=== PATIENT | female | born 1960 | race Caucasian/White ===

== ENCOUNTER 2017-05-12 16:36 | Emergency (ER) | payer BC ==
[2017-05-12 17:03] VITALS: BP 150/81; PULSE 79; TEMP 98.3; BMI 27.1
--- NOTE | 2017-05-12 17:57 | PDOC ---
History of Present Illness - History of Present Illness Initial Comments: 05/12/17 17:56 The patient is a year old female, with a significant past medical history of, who presents to the emergency department with The patient denies chest pain, shortness of breath, headache and dizziness. Denies fever, chills, nausea, vomit, diarrhea and constipation. Denies dysuria, frequency, urgency and hematuria. Allergies: Past surgical history: Social history: PMD - <Sohail Marshall - Last Filed: 05/12/17 17:56> - General History Source: Patient Exam Limitations: No Limitations - History of Present Illness Initial Comments: 05/12/17 18:53 This is a 56-year-old woman without significant past medical history who presents today with a left eye pain upon waking up this morning. Patient reports foreign body sensation which she describes as a very bad pain which worsens when she blinks. Pain is isolated to the left eye only. Patient denies any changes in vision, fevers, headaches, pain behind the eye. She denies trauma. <Lionel Power - Last Filed: 05/12/17 19:05> - General Chief Complaint: Foreign Body (FB) Stated Complaint: EYE INJURY Time Seen by Provider: 05/12/17 17:56 Past History - Past Medical History Anemia: No Asthma: No Cancer: No Cardiac Disorders: No CVA: No COPD: No CHF: No Dementia: No Diabetes: No GI Disorders: Yes (DYSPHAGIA, HEARTBURN, HEMORRHOIDS) Disorders: No HTN: Yes Hypercholesterolemia: No Liver Disease: No Seizures: No Thyroid Disease: No - Surgical History Abdominal Surgery: No Appendectomy: No Cardiac Surgery: No Cholecystectomy: No Lung Surgery: No Neurologic Surgery: No Orthopedic Surgery: No - Psycho/Social/Smoking Cessation Hx Suicidal Ideation: No Smoking History: Never smoked Have you smoked in the past 12 months: No Information on smoking cessation initiated: No Hx Alcohol Use: No Drug/Substance Use Hx: No Substance Use Type: None <Sohail Marshall - Last Filed: 05/12/17 17:56> <Lionel Power - Last Filed: 05/12/17 19:05> - Past Medical History Allergies/Adverse Reactions: Allergies Allergy/AdvReac Type Severity Reaction Status Date / Time No Known Drug Allergies Allergy Verified 05/12/17 19:04 Home Medications: Ambulatory Orders Amlodipine Besylate/Benazepril [Lotrel 5-20 mg Capsule] 1 each PO DAILY Review of Systems - Review of Systems Comments:: 05/12/17 17:56 GENERAL/CONSTITUTIONAL: No fever or chills. No weakness. HEAD, EYES, EARS, NOSE AND THROAT: No change in vision. No ear pain or discharge. No sore throat. CARDIOVASCULAR: No chest pain or shortness of breath RESPIRATORY: No cough, wheezing, or hemoptysis. GASTROINTESTINAL: No nausea, vomiting, diarrhea or constipation. GENITOURINARY: No dysuria, frequency, or change in urination. MUSCULOSKELETAL: No joint or muscle swelling or pain. No neck or back pain. SKIN: No rash NEUROLOGIC: No headache, vertigo, loss of consciousness, or change in strength/ sensation. ENDOCRINE: No increased thirst. No abnormal weight change HEMATOLOGIC/LYMPHATIC: No anemia, easy bleeding, or history of blood clots. ALLERGIC/IMMUNOLOGIC: No hives or skin allergy. <Sohail Marshall - Last Filed: 05/12/17 17:56> - Review of Systems Able to Perform ROS?: Yes Is the patient limited Slovenian proficient: No Constitutional: No: Symptoms Reported HEENTM: Yes: See HPI Respiratory: No: Symptoms reported Cardiac (ROS): No: Symptoms Reported ABD/GI: No: Symptoms Reported : No: Symptoms Reported Musculoskeletal: No: Symptoms Reported Integumentary: No: Symptoms Reported Neurological: No: Symptoms reported Endocrine: No: Symptoms Reported Hematologic/Lymphatic: No: Symptoms Reported <Lionel Power - Last Filed: 05/12/17 19:05> *Physical Exam - Vital Signs Last Vital Signs Temp Pulse Resp BP Pulse Ox 98.3 F 79 18 150/81 99 05/12/17 17:02 05/12/17 17:02 05/12/17 17:02 05/12/17 17:02 05/12/17 17:02 - Physical Exam Comments: 05/12/17 17:56 GENERAL: Awake, alert, and fully oriented, in no acute distress HEAD: No signs of trauma, normocephalic, atraumatic EYES: PERRLA, EOMI, sclera anicteric, conjunctiva clear ENT: Auricles normal inspection, hearing grossly normal, nares patent, oropharynx clear without exudates. Moist mucosa NECK: Normal ROM, supple, no lymphadenopathy, JVD, or masses LUNGS: No distress, speaks full sentences, clear to auscultation bilaterally HEART: Regular rate and rhythm, normal S1 and S2, no murmurs, rubs or gallops, peripheral pulses normal and equal bilaterally. ABDOMEN: Soft, nontender, normoactive bowel sounds. No guarding, no rebound. No masses EXTREMITIES: Normal inspection, Normal range of motion, no edema. No clubbing or cyanosis. NEUROLOGICAL: Cranial nerves II through XII grossly intact. Normal speech, normal gait, no focal sensorimotor deficits SKIN: Warm, Dry, normal turgor, no rashes or lesions noted. <Sohail Marshall - Last Filed: 05/12/17 17:56> - Vital Signs Last Vital Signs Temp Pulse Resp BP Pulse Ox 98.3 F 79 18 150/81 99 05/12/17 17:02 05/12/17 17:02 05/12/17 17:02 05/12/17 17:02 05/12/17 17:02 - Physical Exam General Appearance: Yes: Appropriately Dressed. No: Apparent Distress HEENT: positive: EOMI, YESSY Neck: positive: Trachea midline, Supple. negative: Tender Respiratory/Chest: positive: Lungs Clear, Normal Breath Sounds. negative: Respiratory Distress, Accessory Muscle Use Cardiovascular: positive: Regular Rhythm, Regular Rate, S1, S2. negative: Edema , JVD, Murmur Gastrointestinal/Abdominal: positive: Normal Bowel Sounds, Soft. negative: Tender Musculoskeletal: positive: Normal Inspection. negative: CVA Tenderness Extremity: positive: Normal Capillary Refill, Normal Inspection, Normal Range of Motion Integumentary: positive: Normal Color, Dry, Warm Neurologic: positive: copyist II-XII NML intact, Fully Oriented, Alert, Normal Mood/ Affect, Normal Response, Motor Strength 5/5 <Lionel Power - Last Filed: 05/12/17 19:05> Medical Decision Making - Medical Decision Making 05/12/17 18:53 A: This is a 56-year-old woman without significant past medical history who presents today with a left eye pain upon waking up this morning. Patient reports foreign body sensation which she describes as a very bad pain which worsens when she blinks. Pain is isolated to the left eye only. Patient denies any changes in vision, fevers, headaches, pain behind the eye. She denies trauma. Visual acuity 20/25 in bilateral eyes. No diplopia. No instrument. Extraocular movements intact. Fluorescein examination shows no reuptake. Sclera is erythematous extending into the iris. P: Diagnosis conjunctivitis likely viral but we'll treat with antibiotics either way. Erythromycin ophthalmic ointment half-inch ribbon to left eye 4 times a day for 5 days. discharge <Lionel Power - Last Filed: 05/12/17 19:05> *DC/Admit/Observation/Transfer <Sohail Marshall - Last Filed: 05/12/17 17:56> - Discharge Dispostion Admit: No <Lionel Power - Last Filed: 05/12/17 19:05> Diagnosis at time of Disposition: Conjunctivitis Qualifiers: Conjunctivitis type: unspecified Laterality: left Qualified Code(s): H10.9 - Unspecified conjunctivitis - Discharge Dispostion Disposition: HOME Condition at time of disposition: Stable - Referrals Referrals: Dory Garcia [Primary Care Provider] - - Patient Instructions Additional Instructions: Wash hands with soap and water every time you touch her face. Use erythromycin ointment 4 times a day for the next 5 days. If this persists follow up with an greensman. Return to the emergency department for any severe pain, blurry vision, headaches , fevers, or any other concerns. Thank you very much for choosing us to provide your emergent healthcare needs.
[2017-05-12] MEDS ORDERED: FLUORESCEIN NA 1 EA STRIP ONE (18:42)
[2017-05-12] MEDS ORDERED: TETRACAINE 0.5% OPHTH SOLN 2 ML BOTTLE ONE (18:42)
[2017-05-12] MEDS ORDERED: ERYTHROMYCIN 0.5% OPHTHALMIC OINTMENT 3.5 GM TUBE OS ONE (19:01)
[2017-05-12] MEDS ORDERED: ERYTHROMYCIN 0.5% OPHTHALMIC OINTMENT 3.5 GM TUBE ONE (19:04)
== END 2017-05-12 19:08 | disposition home or self-care (01) ==
LOC: JERFT 16:36
DX: S05.92XA Unspecified injury of left eye and orbit, initial encounter (principal); X58.XXXA Exposure to other specified factors, initial encounter; Y93.9 Activity, unspecified; Y92.9 Unspecified place or not applicable; K21.9 Gastro-esophageal reflux disease without esophagitis
CPT/HCPCS: 99281-25

== ENCOUNTER 2024-01-03 15:25 | Inpatient (IN) | payer BC ==
[2024-01-03] MEDS ORDERED: ACETAMINOPHEN INJECTION 100 ML IVPB ONE (17:42)
[2024-01-03] MEDS ORDERED: PIPERACILLIN/TAZOB 3.375 GM 3.375 GM/50 ML BAG IVPB ONE (17:45)
[2024-01-03] MEDS: PIPERACILLIN/TAZOB 3.375 GM 3.375 GM in DEXTROSE 5%-WATER - 50 ML IVPB ONE (18:05)
[2024-01-03] MEDS: ACETAMINOPHEN 1000 MG/100 ML BAG IVPB ONE (18:05)
[2024-01-03 18:06] LABS: BASO % 0.8 % (0-2.0); EOS % 0.4 % (0-4.5); HEMATOCRIT 37.7 % (32.4-45.2); HEMOGLOBIN 12.8 GM/dL (10.7-15.3); MCH 29.9 pg (25.7-33.7); MEAN CELL VOLUME 87.7 fl (80-96); MEAN PLT VOLUME 8.2 fl (7.5-11.1); MONO % 5.8 % (3.8-10.2); PLATELET COUNT 338 10^3/uL (134-434); RDW 13.6 % (11.6-15.6); WHITE BLOOD COUNT 12.7 K/mm3 (4.0-10.0)
[2024-01-03] MEDS: SODIUM CHLORIDE 1,000 ML IV SCH (18:06)
[2024-01-03] MEDS: LACTATED RINGERS SOLUTION 1,000 ML IV SCH (18:08)
[2024-01-03] MEDS: PIPERACILLIN/TAZOB 3.375 GM 3.375 GM in DEXTROSE 5%-WATER - 50 ML IVPB SCH ×2 (18:09→22:36)
[2024-01-03 18:13] LABS: INR 0.97 (0.83-1.09)
[2024-01-03 18:15] LABS: ACTIVATED PTT 27.7 SECONDS (25.2-36.5)
[2024-01-03 18:24] LABS: POTASSIUM 3.3 mmol/L (3.5-5.1)
[2024-01-03 18:26] LABS: BLOOD UREA NITROGEN 11.7 mg/dL (7-18); CALCIUM 9.6 mg/dL (8.5-10.1)
[2024-01-03 18:27] LABS: ALBUMIN 3.8 g/dl (3.4-5.0); MAGNESIUM 1.9 mg/dL (1.8-2.4)
[2024-01-03 18:30] LABS: CREATININE 0.7 mg/dL (0.55-1.3)
[2024-01-03 18:31] LABS: BILIRUBIN,TOTAL 1.4 mg/dL (0.2-1); TOT PROT 7.6 g/dl (6.4-8.2)
[2024-01-03] MEDS ORDERED: KCL 10 MEQ IVPB 10 MEQ/100 ML INFUS.BAG IVPB ONE (18:58)
[2024-01-03] MEDS: KCL 10 MEQ IVPB 10 MEQ/100 ML INFUS.BAG IVPB SCH (19:10)
[2024-01-03 19:44] LABS: BILIRUBIN,DIRECT 0.2 mg/dL (0.0-0.2)
[2024-01-03] MEDS ORDERED: ACETAMINOPHEN 325 MG TABLET (FP) ONE (19:48)
[2024-01-04 03:10] VITALS: BMI 23.9
[2024-01-04] MEDS: ACETAMINOPHEN 325 MG TABLET (FP) PO PRN (07:46)
[2024-01-04 08:30] LABS: BASO % 0.4 % (0-2.0); EOS % 0.5 % (0-4.5); HEMATOCRIT 31.9 % (32.4-45.2); HEMOGLOBIN 11.4 GM/dL (10.7-15.3); LYMPH % 10.5 % (8-40); MCH 30.9 pg (25.7-33.7); MCHC 35.9 g/dl (32.0-36.0); MEAN CELL VOLUME 86.2 fl (80-96); MEAN PLT VOLUME 7.9 fl (7.5-11.1); MONO % 6.8 % (3.8-10.2); NEUT % 81.8 % (42.8-82.8); PLATELET COUNT 288 10^3/uL (134-434); RDW 13.3 % (11.6-15.6); WHITE BLOOD COUNT 10.7 K/mm3 (4.0-10.0)
[2024-01-04 08:32] LABS: POTASSIUM 3.4 mmol/L (3.5-5.1)
[2024-01-04 08:40] LABS: ALBUMIN 3.3 g/dl (3.4-5.0); BLOOD UREA NITROGEN 7.7 mg/dL (7-18); PHOSPHOROUS 2.9 mg/dL (2.5-4.9)
[2024-01-04 08:42] LABS: BILIRUBIN,TOTAL 2.7 mg/dL (0.2-1); CALCIUM 8.8 mg/dL (8.5-10.1); TOT PROT 6.7 g/dl (6.4-8.2)
[2024-01-04 08:43] LABS: CREATININE 0.7 mg/dL (0.55-1.3); MAGNESIUM 1.8 mg/dL (1.8-2.4)
[2024-01-04] MEDS: ACETAMINOPHEN 1000 MG/100 ML BAG IVPB PRN (13:47)
[2024-01-04] MEDS: CEFTRIAXONE 1 GM in DEXTROSE 5%-WATER - 50 ML IVPB ONE (14:06)
[2024-01-04] MEDS: SODIUM CHLORIDE 0.9%/KCL 20 MEQ/1,000 ML INFUS.BAG IV SCH ×2 (16:04→22:42)
[2024-01-04] MEDS: HYDROmorphone HCl 2 MG/ML VIAL IVPB PRN (16:18)
[2024-01-04 18:26] LABS: BASO % 0.2 % (0-2.0); EOS % 0.2 % (0-4.5); HEMATOCRIT 31.3 % (32.4-45.2); HEMOGLOBIN 10.7 GM/dL (10.7-15.3); LYMPH % 6.2 % (8-40); MCHC 34.3 g/dl (32.0-36.0); MEAN CELL VOLUME 87.4 fl (80-96); MEAN PLT VOLUME 7.5 fl (7.5-11.1); MONO % 8.4 % (3.8-10.2); PLATELET COUNT 270 10^3/uL (134-434); RBC 3.58 M/mm3 (3.60-5.2); RDW 13.3 % (11.6-15.6); WHITE BLOOD COUNT 13.5 K/mm3 (4.0-10.0)
[2024-01-04 19:54] LABS: POTASSIUM 3.5 mmol/L (3.5-5.1)
[2024-01-04 19:58] LABS: ALBUMIN 3.2 g/dl (3.4-5.0); BLOOD UREA NITROGEN 8.8 mg/dL (7-18)
[2024-01-04 20:01] LABS: CREATININE 0.6 mg/dL (0.55-1.3)
[2024-01-04 20:02] LABS: TOT PROT 6.6 g/dl (6.4-8.2)
[2024-01-05 07:48] LABS: HEMATOCRIT 31.4 % (32.4-45.2); HEMOGLOBIN 11.1 GM/dL (10.7-15.3); MCH 30.5 pg (25.7-33.7); MCHC 35.3 g/dl (32.0-36.0); MEAN CELL VOLUME 86.3 fl (80-96); MEAN PLT VOLUME 6.9 fl (7.5-11.1); PLATELET COUNT 253 10^3/uL (134-434); RBC 3.63 M/mm3 (3.60-5.2); RDW 13.5 % (11.6-15.6); WHITE BLOOD COUNT 14.2 K/mm3 (4.0-10.0)
[2024-01-05 08:07] LABS: POTASSIUM 3.4 mmol/L (3.5-5.1)
[2024-01-05 08:09] LABS: CALCIUM 8.2 mg/dL (8.5-10.1)
[2024-01-05 08:10] LABS: ALBUMIN 2.8 g/dl (3.4-5.0); BLOOD UREA NITROGEN 10.7 mg/dL (7-18)
[2024-01-05 08:13] LABS: CREATININE 0.7 mg/dL (0.55-1.3)
[2024-01-05 08:14] LABS: TOT PROT 5.9 g/dl (6.4-8.2)
[2024-01-05] MEDS: CEFTRIAXONE 1 GM in DEXTROSE 5%-WATER - 50 ML IVPB SCH (09:12)
[2024-01-05] MEDS: POTASSIUM CHLORIDE ORAL LIQUID 20 MEQ/15 ML PO ONE (10:18)
[2024-01-05] MEDS: SODIUM CHLORIDE 0.9%/KCL 20 MEQ/1,000 ML INFUS.BAG IV SCH ×2 (10:19→18:40)
[2024-01-05] MEDS: SODIUM CHLORIDE 1,000 ML IV STA ×2 (12:00→18:38)
[2024-01-05 14:38] LABS: CALCIUM 8.6 mg/dL (8.5-10.1)
[2024-01-05 14:39] LABS: ALBUMIN 2.6 g/dl (3.4-5.0); BLOOD UREA NITROGEN 10.7 mg/dL (7-18)
[2024-01-05 14:44] LABS: BILIRUBIN,TOTAL 1.3 mg/dL (0.2-1)
[2024-01-05 14:48] LABS: CREATININE 0.5 mg/dL (0.55-1.3)
[2024-01-05 14:50] LABS: TOT PROT 5.8 g/dl (6.4-8.2)
[2024-01-05 16:11] LABS: EPI CELLS 10 /uL (0-25.1); HYALINE CASTS 0 /uL (0-3.1); PH,URINE 6.5 (5.0-8.0); URINE APPEARANCE CLEAR; URINE BACTERIA 1 /uL (0-1359); URINE BILIRUBIN NEGATIVE (NEGATIVE); URINE COLOR YELLOW; URINE GLUCOSE (UA) NEGATIVE (NEGATIVE); URINE KETONE NEGATIVE (NEGATIVE); URINE LEUK ESTERASE NEGATIVE (NEGATIVE); URINE NITRITE NEGATIVE (NEGATIVE); URINE PROTEIN NEGATIVE (NEGATIVE); URINE RBC 10 /uL (0-23.9); URINE UROBILINOGEN 0.2 mg/dL (0.2-1.0); URINE WBC 5 /uL (0-25.8)
[2024-01-06 05:21] LABS: POTASSIUM 3.8 mmol/L (3.5-5.1)
[2024-01-06 05:23] LABS: CALCIUM 8.3 mg/dL (8.5-10.1)
[2024-01-06 05:24] LABS: ALBUMIN 2.4 g/dl (3.4-5.0); BLOOD UREA NITROGEN 9.1 mg/dL (7-18); MAGNESIUM 1.9 mg/dL (1.8-2.4)
[2024-01-06 05:27] LABS: CREATININE 0.4 mg/dL (0.55-1.3); INR 1.38 (0.83-1.09); PROTHROMBIN TIME (PATIENT) 15.5 SEC (9.7-13.0)
[2024-01-06 05:28] LABS: BILIRUBIN,TOTAL 1.1 mg/dL (0.2-1)
[2024-01-06 05:29] LABS: TOT PROT 5.3 g/dl (6.4-8.2)
[2024-01-06 05:40] LABS: HEMATOCRIT 29.2 % (32.4-45.2); HEMOGLOBIN 10.2 GM/dL (10.7-15.3); MCH 30.8 pg (25.7-33.7); MCHC 34.8 g/dl (32.0-36.0); MEAN CELL VOLUME 88.5 fl (80-96); MEAN PLT VOLUME 8.4 fl (7.5-11.1); PLATELET COUNT 228 10^3/uL (134-434); RBC 3.31 M/mm3 (3.60-5.2); RDW 13.5 % (11.6-15.6); WHITE BLOOD COUNT 10.6 K/mm3 (4.0-10.0)
[2024-01-06] MEDS: INDOCYANINE GREEN 25 MG/10 ML VIAL IVPUSH ONE (06:23)
[2024-01-06] MEDS ORDERED: LIDOCAINE HCL/PF 2% SDV 5ML VIAL ONE (07:49)
[2024-01-06] MEDS ORDERED: ROCURONIUM BROMIDE 50 MG/5 ML SYRINGE ONE (07:49)
[2024-01-06] MEDS ORDERED: PROPOFOL 20 ML ONE (07:50)
[2024-01-06] MEDS ORDERED: MIDAZOLAM HCL 2 MG/2 ML SINGLE DOSE VIAL ONE (07:50)
[2024-01-06] MEDS ORDERED: SUCCINYLCHOLINE CHLORIDE 200 MG/10 ML SYRINGE ONE (07:50)
[2024-01-06] MEDS ORDERED: FENTANYL CITRATE/PF 50 MCG/ML VIAL ONE ×3 (07:50→10:35)
[2024-01-06] MEDS ORDERED: BUPIVACAINE HCL/PF 0.25% (2.5MG/ML) 10 ML VIAL ONE (08:08)
[2024-01-06] MEDS ORDERED: oxyCODONE HCL 5 MG TABLET PO PRN ×4 (08:17→11:47)
[2024-01-06] MEDS ORDERED: ONDANSETRON 4 MG/2 ML VIAL IVPUSH PRN (08:17)
[2024-01-06] MEDS ORDERED: PROMETHAZINE HCL 25 MG/1 ML VIAL IVPB PRN ×2 (08:17→11:47)
[2024-01-06] MEDS ORDERED: SEVOFLURANE 250 ML BTL ONE (08:23)
[2024-01-06] MEDS ORDERED: ONDANSETRON 4 MG/2 ML VIAL ONE (08:24)
[2024-01-06] MEDS ORDERED: SUGAMMADEX SODIUM 200 MG/2 ML VIAL ONE (08:24)
[2024-01-06] MEDS ORDERED: DEXAMETHASONE SOD PHOSPHATE 4 MG/1 ML VIAL ONE ×2 (08:24→08:58)
[2024-01-06] MEDS: cefTRIAXone SODIUM 1 GM VIAL IVPB ONE (09:02)
[2024-01-06] MEDS ORDERED: KETOROLAC TROMETHAMINE 30 MG/1 ML VIAL ONE (09:26)
[2024-01-06] MEDS: BUPIVACAINE HCL/PF 0.25% (2.5MG/ML) 10 ML VIAL IJ ONE (10:18)
[2024-01-06] MEDS: ACETAMINOPHEN 1000 MG/100 ML BAG IVPB SCH (11:25)
[2024-01-06] MEDS ORDERED: ACETAMINOPHEN INJECTION 100 ML IVPB ONE (11:33)
[2024-01-06] MEDS: SODIUM CHLORIDE 0.9%/KCL 20 MEQ/1,000 ML INFUS.BAG IV SCH (12:26)
[2024-01-06] MEDS: ACETAMINOPHEN 1000 MG/100 ML BAG IVPB ONE (13:06)
[2024-01-06 14:02] VITALS: RESP 18
[2024-01-06 18:08] VITALS: BP 116/75; PULSE 62; TEMP 98.8
[2024-01-07] MEDS ORDERED: CEFTRIAXONE 1 GM in DEXTROSE 5%-WATER - 50 ML IVPB SCH (09:00)
[2024-01-07] MEDS ORDERED: ACETAMINOPHEN 500 MG TABLET (FP) PO PRN (12:00)
== END 2024-01-06 19:20 | disposition home or self-care (01) | DRG 419 ==
LOC: JER 15:25 → JERBED 16:59 → J5S 20:04
PROVIDERS: ADMIT Internal Medicine; ATTEND Internal Medicine
PROC: 8E0W4CZ Robotic Assisted Procedure of Trunk Region, Percutaneous Endoscopic Approach (ICD-10-PCS; 2024-01-06)
PROC: 0FT44ZZ Resection of Gallbladder, Percutaneous Endoscopic Approach (ICD-10-PCS; principal; 2024-01-06 08:00)
DX: K80.00 Calculus of gallbladder with acute cholecystitis without obstruction (principal); I10 Essential (primary) hypertension; K21.9 Gastro-esophageal reflux disease without esophagitis
CPT/HCPCS: 36415; 74181-TC; 80053; 81003; 82248; 82436; 82550; 83605; 83735; 83930; 83935; 84100; 84133; 84300; 84436; 84439; 84443; 84481; 84484; 85025; 85027; 85610; 85730; 86850; 86900; 86901; 88304-TC; 93005; 93010; 94760; 99285-25; J0131